=== PATIENT | female | born 1985 | race Caucasian/White ===

== ENCOUNTER 2018-05-21 06:04 | Inpatient (IN) | payer OTHER ==
[~2018-05-21] VITALS: Ht 167.6 cm; Wt 108.9 kg
[~2018-05-21 06:04] MED LIST: MOTRIN 800MG T800 MG PO; PERCOCET 325 MG1 TA2 PO
[2018-05-21 06:22] VITALS: BP 121/70
--- NOTE | 2018-05-21 09:15 | Operative Report ---
Operative/Inv Procedure Report Surgery Date: 05/21/18 Name of Procedure: Repeat low flap transverse section Via Pfannenstiel skin incision lysis of adhesions Pre-Operative Diagnosis: Previous section term Post-Operative Diagnosis: Same Estimated Blood Loss: 750 Surgeon/School Bus Monitor: Compa MONTESINOS,Preeti Clemens Anesthesia: block Operative/Procedure Note Note: Procedure note patient was taken to the operating room placed supine position after adequate anesthesia patient placed into a supine position the vagina fashion bladder was catheterized examination under anesthesia was performed at this point patient was returned supine position through an old Pfannenstiel skin tension after adequate skin testing skin was cut was carried down to rectus fascia was cut in either direction in curvilinear fashion peritoneal cavity was entered high into the abdomen a lobulated amount was placed in lowering incision the visceral peritoneum of the uterus was dissected bluntly and a bladder flap was developed in the lower uterine segment uterus was next entered with the back of the night and this was dissected bluntly at this point the first attempt with a fundal pressure to deliver the failed a vacuum was applied to the vertex 2 also failed at this point the incision on the uterus was extended as well as a Wen was placed into the uterus with immediate delivery of the vertex was doubly clamped cut. Spontaneous cry and the infant was handed to tester sound who was working delivering to any resuscitation center was manually noted to be intact was likely due to a dry lap suture was free of membranes it was oversewn with running locking suture as well hemostasis was apparent this was turned to abdominal cavity irrigated copious amounts of warm saline until clear the incision was hemostatic peritoneum to approximately 0 flush was replacement to continue sutures #1 skin was reapproximated with elenita at the end the case the counts correct urine was clear and the patient and baby was transferred recovery room awake alert Findings: Viable male infant with three-vessel cord and normal tubes and ovaries bilaterally otherwise normal anatomy
[2018-05-22 07:45] LABS: ABSOLUTE BASOPHIL COUNT 0 /CUMM (0.0-0.2); ABSOLUTE EOSINOPHIL COUNT 0.1 /CUMM (0.0-0.7); ABSOLUTE GRANULOCYTE CT 8.8 /CUMM (1.4-6.5); ABSOLUTE LYMPH COUNT 2.8 /CUMM (1.2-3.4); BASOPHIL % 0.3 % (0.0-2.0); EOSINOPHIL % 0.6 % (0-5); GRANULOCYTE % 69.3 % (42.2-75.2); HEMATOCRIT 30.9 % (37-47); MEAN CORPUSCULAR HGB 30.6 PG (27.0-31.0); MEAN CORPUSCULAR HGB CONC 33.1 G/DL (33.0-37.0); MEAN CORPUSCULAR VOLUME 92.6 FL (81.0-99.0); MEAN PLATELET VOLUME 9.8 FL (7.4-10.4); PLATELET COUNT 241 /CUMM (130-400); RBC DISTRIBUTION WIDTH 13.4 % (11.5-14.5); RED BLOOD CELL CT 3.33 /CUMM (4.20-5.40); WHITE BLOOD CELL COUNT 12.8 /CUMM (4.8-10.8)
--- NOTE | 2018-05-22 09:37 | PN- Post Delivery/GYN ---
Subjective Subjective: No complaints Objective Last 24 Hrs of Vital Signs/I&O Vital signs stable Physical Exam: Well-built white female in no apparent distress HEENT intact Lungs clear Abdomen soft distention nontender Incision clean dry and intact Fundus firm nontender Lochia minimal Extremities +2 edema negative Homans reflexes normal Assessment/Plan Assessment/Plan Assessment status post repeat low flap transverse section plan advance diet advanced ambulation check CBCs
[2018-05-23] MEDS ORDERED: PERCOCET 5-3251 EACH PO (08:12)
[2018-05-23] MEDS ORDERED: IBUPROFEN800 M1 PO (08:12)
== END 2018-05-23 11:30 | DRG 766 ==
LOC: GNO 06:04
PROVIDERS: Specialist
PROC: 10D00Z1 Extraction of Products of Conception, Low, Open Approach (ICD-10-PCS; principal; 2018-05-22)
DX: O34.211 Maternal care for low transverse scar from previous cesarean delivery (principal); Z37.0 Single live birth; N85.8 Other specified noninflammatory disorders of uterus; Z3A.39 39 weeks gestation of pregnancy
CPT/HCPCS: GNOS; 36415; 80307; 87086; 88307; J0690; J1200; J1650; J1885; J2210; J2765; J7120